=== PATIENT | female | born 1980 | race Caucasian/White ===

== ENCOUNTER 2024-04-15 17:20 | Emergency (ER) | payer OTHER, SELFPAY ==
[2024-04-15 17:24] VITALS: BP 116/77
[2024-04-15 19:00] VITALS: BP 104/69
[2024-04-15 19:17] VITALS: BMI 21.7
--- NOTE | 2024-04-15 19:30 | ED.GENMED ---
History of Present Illness
General
Chief Complaint: Back Pain
Source: patient, spouse (notes she has not had any pain medicine) and family
Exam Limitations: none
Time Seen by Provider: 04/15/24 18:42
Nursing documentation reviewed up to this point in time: agreed with
History of Present Illness
History of Present Illness:
43-year-old female presents emergency department complaining of mid to lower back pain that began this morning after helping a neighbor get dressed. She was lifting the neighbor up, who is over 450 pounds. She denies falling or any trauma. She
denies difficulty urinating. She did not take any medications prior to arrival
Past History
Past History
ED Past Medical History: Asthma, Other (Multiple allergies), Other (Migraine cephalgia) and Other
ED Past Surgical History: None
Social History
Personal:
Living: with family
Employment: Employed
Phy Exam
Physical Exam
Physical Exam:
Physical Exam
General: no apparent distress, not acutely ill
Neck: supple. no meningeal signs. normal posterior pharynx
Heart: s1/s2 regular rate and rhythm, no murmur. equal radial
pulses.
HEENT: Pupils equal round reactive to light, EOMI
Lungs: no acute respiratory distress. clear bilaterally
Abdomen: normal bowel sounds. not tender. no CVAT
Back: Mild tenderness to palpation at paraspinal musculature lower thoracic, upper lumbar
Neuro: alert and oriented. no focal neurological deficits cranial nerves II through XII intact
Skin: no rash
Psychiatric: well kept. interactive and cooperative
Extremities: no edema. no calf tenderness. negative homans. good distal pulses
Course
Orders/Labs/Results
Orders:
Orders
04/15/24 18:55
Ketorolac [Toradol] 15 mg IM NOW STA
04/15/24 19:22
Ibuprofen [Motrin] 600 mg PO NOW STA
04/15/24 19:23
CR Thoracic Spine 3 Views Urgent
Reason For Exam: mid back pain after lifting heavy person
Lumbar Spine Complete, 4 View [CR Lumbar Spine Comp Min 4 Vw*] Urgent
Comment:
Reason For Exam: mid back pain after lifting heavy person
04/15/24 19:29
Acetaminophen [Tylenol] 650 mg PO NOW STA
Vital Signs
Initial and Last Documented VS:
Initial Vital Signs
Temp Pulse Resp BP Pulse Ox
97.7 F 121 16 116/77 100
04/15/24 17:24 04/15/24 17:24 04/15/24 17:24 04/15/24 17:24 04/15/24 17:24
Last Documented Vital Signs
Temp Pulse Resp BP Pulse Ox
97.7 F 90 18 100/65 100
04/15/24 17:24 04/15/24 20:24 04/15/24 20:24 04/15/24 20:24 04/15/24 20:24
MDM/Problems Addressed
Differential Diagnosis Includes:
Back strain, vertebral fracture, cauda equina
MDM/Problems Addressed:
43-year-old female with back strain. Do not suspect cauda equina do not suspect fracture. Stable for discharge. X-ray no acute findings.
*Radiology
Radiology exam reviewed: radiology read reviewed (X-ray no acute finding)
*Pulse Oximetry
Patient hypoxic: no
*Critical Care Note
Total Time (30-74mins, 75-104mins- exclusive of procedures): Not Applicable
Patient Management
Social determinants of health affecting care: Living situation
Escalation/DeEscalation of care consider admission/obs:
Admission not indicated
ED Attending Note
-
Portions of this chart may have been created with voice recognition software.� Occasional wrong word or��sound alike� substitutions may have occurred due to the inherent limitations of voice recognition software.
Discharge Plan
Departure
Patient Disposition: Home (Routine Discharge)
Date of Disposition: 04/15/24
Time of Disposition: 21:14
Patient with high blood pressure during this ER visit?: No
Condition: Good
Discharge Problem:
Strain of mid-back
Instructions: Back Muscle Strain
Prescriptions:
No Action
cetirizine [Zyrtec] 10 mg Tablet
10 mg PO HS
magnesium citrate 125 mg Capsule
250 mg PO HS
Centrum
2 pill PO DAILY
Rx Instructions:
centrum immune mini's 2 tabs
Referrals:
Brien Sprague MD [Active] - Call in 1-3 days for appt
NONE,* [Family Provider] -
Interventions
Interventions:
*Risk Screen - Suicide Last Done: 04/15/24 17:24
*General Assessment Last Done: 04/15/24 19:45
*Neglect/Abuse Screening Last Done: 04/15/24 17:24
ED- Fall Risk Assessment Last Done: 04/15/24 19:00
*ED COVID-19 Vaccine History Last Done: 04/15/24 19:45
*Nursing Disposition Last Done: 04/15/24 21:23
ED-Musculoskeletal Assessment Last Done: 04/15/24 19:00
Discharge Date and Time
Discharge Date/Time: 04/15/24 21:25
Print Language: GEORGIAN
[2024-04-15] MEDS: TYLENOL 650 MG PO (19:41)
[2024-04-15 20:24] VITALS: BP 100/65
== END 2024-04-15 21:25 | disposition home or self-care (01) ==
LOC: EMR 17:20
PROVIDERS: EMERGENCY PHYSICIAN Emergency Medicine
DX: S29.012A Strain of muscle and tendon of back wall of thorax, initial encounter (principal); X50.0XXA Overexertion from strenuous movement or load, initial encounter; J45.909 Unspecified asthma, uncomplicated; G43.909 Migraine, unspecified, not intractable, without status migrainosus; Z88.1 Allergy status to other antibiotic agents; Z91.040 Latex allergy status; Z88.0 Allergy status to penicillin; Z88.2 Allergy status to sulfonamides; Z88.7 Allergy status to serum and vaccine; Z88.8 Allergy status to other drugs, medicaments and biological substances; Z91.048 Other nonmedicinal substance allergy status
CPT/HCPCS: 99283; 72072; 72110

== ENCOUNTER 2024-08-26 13:06 | Emergency (ER) | payer BC, SELFPAY ==
[2024-08-26 13:11] VITALS: BP 135/76
[2024-08-26 13:46] LABS: Hematocrit 43.3 % (37.0-47.0); Hemoglobin 14.9 g/dL (12.0-16.0); Mean Corp Hgb Conc. 34.4 g/dL (33.0-37.0); Mean Corpuscular Volume 88.2 fL (81.0-99.0); Nucleated Red Blood Cells % 0 %; Platelet Count 241 10^3/uL (130-400); Red Cell Dist. Width 12.7 % (11.5-14.5)
[2024-08-26 13:52] LABS: APTT 27.5 Sec (23.4-35.0); INR 0.95; PT 13.0 Sec (11.4-14.6)
[2024-08-26 14:03] LABS: ALT (SGPT) 22 U/L (0-35); AST (SGOT) 19 U/L (14-36); Albumin 5.0 g/dl (3.5-5.0); Alkaline Phosphatase 64 U/L (38-126); Blood Urea Nitrogen 14 mg/dl (7-17); Calcium 10.0 mg/dl (8.4-10.2); Carbon Dioxide 21 mmol/L (22-30); Chloride 110 mmol/L (98-107); Glucose 112 mg/dl (70-99); Potassium 5.1 mmol/L (3.5-5.1); Sodium 137 mmol/L (135-145); Total Protein 7.8 g/dl (6.3-8.2); eGFR > 60.00
[2024-08-26 14:15] LABS: Troponin I < 0.012 ng/ml
--- NOTE | 2024-08-26 17:08 | ED.GENMED ---
History of Present Illness
General
Chief Complaint: Numbness
Source: patient
Exam Limitations: none
Time Seen by Provider: 08/26/24 16:54
History of Present Illness
History of Present Illness:
43-year-old female with a headache to the top of the head x 1 week. Persistent headache. History of frequent headache although this 1 feels differently. She went to urgent care and was placed on doxycycline and a Medrol Dosepak. This morning she
woke with some paresthesias to the upper arm and face. No other neurologic symptoms. History of spinal leak remotely. She does get headaches frequently
Past History
Past History
ED Past Medical History: Asthma, Other (Multiple allergies), Other (Migraine cephalgia) and Other (Spinal leaks)
ED Past Surgical History:
Social History
Personal:
Living: with family
Employment: Employed
Review of Systems
Review of Systems
All Other Systems: Not applicable
Respiratory: Reports no symptoms
Cardiac: Reports no symptoms
ABD/GI: Reports no symptoms
Phy Exam
Physical Exam
Physical Exam:
GENERAL: Alert and oriented in no apparent distress
EYE: Orbits normal. Extraocular muscles intact. No nystagmus
NECK: Supple, no carotid bruit
ENT: Pharynx without erythema
CARDIAC: Regular rate and rhythm without any obvious murmurs.
LUNGS: Clear breath sounds,normal
ABDOMEN: Soft, without focal tenderness or distention
NEUROLOGICAL: Alert and oriented , cranial nerves II through XII intact. Speech normal. Extraocular muscles intact. [id number] normal. No drift. Good lower extremity strength. Light touch intact. Pinprick intact.
SKIN: Warm and dry, no rash or lesion, no discoloration, skin intact.
MUSCULOSKELETAL: No edema,no deformity.Good color
PSYCH: Normal and appropriate interaction.
Course
Orders/Labs/Results
Orders:
Orders
08/26/24 13:15
CT Head W/o Iv Contrast Urgent
Comment:
Reason For Exam: R face and RUE numbness, headache, dizzy
08/26/24 13:21
Electrocardiogram (*1) Urgent
Reason for Study: Other
Other Reason for Exam: Possible Stroke
EKG- Treatment ONCE
08/26/24 13:32
Complete Blood Count/With Diff Urgent
Comprehensive Metabolic Panel Urgent
HCG, Serum Qualitative Screen Urgent
Comment: ADD ON
PTT Urgent
Prothrombin Time Urgent
Troponin I Urgent
08/26/24 17:12
Add On- LAB Urgent
Tests Added?: qual bhcg
08/26/24 18:00
Lidocaine 2% [Xylocaine 2% Mdv] 5 ml INJ ONCE ONE
Triamcinolone Injectable [Kenalog-40] 40 mg IM NOW ONE
08/26/24 19:14
Add On- LAB Urgent
Tests Added?: lyme progressive
Abnormal Lab Results
08/26/24
13:32
WBC 11.0 H 10^3/uL
(4.8-10.8)
Absolute Neuts (auto) 8.6 H 10^3/uL
(1.4-6.5)
Neutrophils % 78.7 H %
(42.2-75.2)
Lymphocytes % 12.8 L %
(20.5-51.1)
Chloride 110 H mmol/L
(98-107)
Carbon Dioxide 21 L mmol/L
(22-30)
Glucose 112 H mg/dl
(70-99)
08/26/24 13:32
08/26/24 13:32
Vital Signs
Initial and Last Documented VS:
Initial Vital Signs
Temp Pulse Resp BP Pulse Ox
98.9 F 114 18 135/76 100
08/26/24 13:11 08/26/24 13:11 08/26/24 13:11 08/26/24 13:11 08/26/24 13:11
Last Documented Vital Signs
Temp Pulse Resp BP Pulse Ox
98.9 F 88 16 110/77 99
08/26/24 13:11 08/26/24 18:09 08/26/24 18:09 08/26/24 18:09 08/26/24 18:09
MDM/Problems Addressed
Differential Diagnosis Includes:
43-year-old female ongoing headache for 1 week. Paresthesias subjectively to the upper arm and right face. Exam is within normal limits however. Some sinus disease on the CT. Labs stable. Neurology will evaluate.
*Radiology
Radiology exam reviewed: radiology read reviewed (No acute findings.)
*Pulse Oximetry
SaO2: 100
Oxygen Mode of Delivery: Room air
Patient hypoxic: no
*Critical Care Note
Total Time (30-74mins, 75-104mins- exclusive of procedures): Not Applicable
Update Note
Update Note:
Patient seen and cleared by neurology. They did do a cervical injection. She is feeling better at the time.
ED Attending Note
-
Portions of this chart may have been created with voice recognition software.� Occasional wrong word or��sound alike� substitutions may have occurred due to the inherent limitations of voice recognition software.
Discharge Plan
Departure
Patient Disposition: Home (Routine Discharge)
Date of Disposition: 08/26/24
Time of Disposition: 19:15
Patient with high blood pressure during this ER visit?: No
Discharge Problem:
Headache/paresthesias, History of spinal leak
Instructions: Paresthesia (DC), Headaches in adults
Prescriptions:
No Action
cetirizine [Zyrtec] 10 mg Tablet
10 mg PO HS
magnesium citrate 125 mg Capsule
250 mg PO HS
Centrum
2 pill PO DAILY
Rx Instructions:
centrum immune mini's 2 tabs
Referrals:
NONE,* [Family Provider, Internal Medicine]
Activity Restrictions/Additional Instructions:
Neurology did recommend an outpatient MRI for completeness
To consider calling [facility] for follow-up or your neurosurgeon
Return with any concerns of progressive symptoms weakness numbness worsening headache etc.
I did send a Lyme titer off for completeness which should be back in 3 to 4 days
Interventions
Interventions:
*Risk Screen - Suicide Last Done: 08/26/24 13:11
*General Assessment Last Done: 08/26/24 13:11
*Neglect/Abuse Screening Last Done: 08/26/24 13:11
*ED COVID-19 Vaccine History Last Done: 08/26/24 13:11
ED- Neurological Assessment Last Done: 08/26/24 18:09
Discharge Date and Time
Print Language: EQUATORIAL GUINEAN
[2024-08-26 17:48] LABS: HCG, Serum Qualitative Screen Negative
--- NOTE | 2024-08-26 18:02 | CON.NEURO ---
Neuro Assessment/Plan
Assessment
43 year old woman with worsening headache, subtle right sided deficits likely due to right c4 sublux
I caught her doing the movement that caused the subluxation (cervical flexion/left rotation) which she admits to doing all the time
she's very scared of the meningeal diverticulum rupturing, and given that this began while she was getting a massage understandably
I did trigger point injection Rt C4 paraspinal, after which her headache and right sided deficits essentially resolved
Plan
no need for MRI to rule out brain tumor
d/c from ED
Consultation
Order
Date of Consultation: 08/26/24
Requesting Provider: Ernst Jay
Reason for Consult: Rt sided tingling numbness
Subjective/Objective
Subjective Data
Date of Service: August 26, 2024
from ED notes;
43-year-old female with a headache to the top of the head x 1 week. Persistent headache. History of frequent headache although this 1 feels differently. She went to urgent care and was placed on doxycycline and a Medrol Dosepak. This morning she
woke with some paresthesias to the upper arm and face. No other neurologic symptoms. History of spinal leak remotely. She does get headaches frequently
her usual headache feels like a really tight ponytail in the back of her head. this headache more severe, feels like the top of her head is going to blow off. remote CSF leak with c6-c7 diverticulum, began during massage for trigger point where she
passed out and vomited profusely
Objective Data
Vital Signs
Temp Pulse Resp BP Pulse Ox
37.2 C 114 18 135/76 100
08/26/24 13:11 08/26/24 13:11 08/26/24 13:11 08/26/24 13:11 08/26/24 17:09
Lab Results
08/26/24 13:32
08/26/24 13:32
PT 13.0 Sec (11.4-14.6) 08/26/24
INR 0.95 08/26/24
APTT 27.5 Sec (23.4-35.0) 08/26/24
Sodium 137 mmol/L (135-145) 08/26/24
Potassium 5.1 mmol/L (3.5-5.1) 08/26/24
BUN 14 mg/dl (7-17) 08/26/24
Glucose 112 mg/dl (70-99) H 08/26/24
Calcium 10.0 mg/dl (8.4-10.2) 08/26/24
Patient Allergies
Sulfa (Sulfonamide Antibiotics) Allergy (Unknown, Verified 08/26/24 13:15)
Hives
cephalexin monohydrate (From Keflex) Allergy (Verified 08/26/24 13:15)
Hives
Influenza Virus Vaccines Allergy (Verified 08/26/24 13:15)
Anaphylaxis
iodine Allergy (Verified 08/26/24 13:15)
Unknown
latex (Latex) Allergy (Verified 08/26/24 13:15)
Rash
Penicillins Allergy (Verified 08/26/24 13:15)
Hives
povidone-iodine (From Betadine) Allergy (Verified 08/26/24 13:15)
Swelling
soap (From Betadine) Allergy (Verified 08/26/24 13:15)
Swelling
preservatives Allergy (Uncoded 08/26/24 13:15)
Anaphylaxis
steroids Allergy (Uncoded 08/26/24 13:15)
Unknown
Physical Exam
-
loss of dominance
patch of numbness to pinprick right lateral neck
mild vibratory loss RUE
palpated right c4 subluxation with overlying trigger point, very tender, too painful for patient to tell if it worsens the neuro symptoms
Medications
-
Home Medications
�Medication �Instructions �Recorded
Centrum 2 pill PO DAILY 04/15/24
cetirizine 10 mg tablet (Zyrtec) 10 mg PO HS 04/15/24
magnesium citrate 125 mg capsule 250 mg PO HS 04/15/24
[2024-08-26 18:09] VITALS: BP 110/77; BMI 22.5
--- NOTE | 2024-08-26 18:54 | EDRN ---
Dr. Cee bedside with medication to administer a nerve block.
--- NOTE | 2024-08-27 01:19 | W.PN.UPDATE ---
Update Note
Progress Note Update
procedure note
[id number] trigger point inj 1-2
M79.10 trigger point
in a 3 cc syringe 25g x 5/8 in needle drawn 2.5 cc Lidocaine 2% and 20 mg Kenalog-40
right c4 paraspinals trigger point palpated and entire contents injected in a fan vertically
after procedure patient report headache resolved. on exam right sided weakness and numbness also resolved.
[2024-08-27 13:59] LABS: Lyme Antibody Screen, EIA Negative (Negative)
== END 2024-08-26 19:29 | disposition home or self-care (01) ==
LOC: EMR 13:06
PROVIDERS: Physician Assistant; EMERGENCY PHYSICIAN Emergency Medicine; OTHER PHYSICIAN Psychiatry & Neurology Clinical Neurophysiology
DX: R20.2 Paresthesia of skin (principal); R51.9 Headache, unspecified; G96.09 Other spinal cerebrospinal fluid leak; Z88.1 Allergy status to other antibiotic agents; Z91.040 Latex allergy status; Z88.0 Allergy status to penicillin; Z88.2 Allergy status to sulfonamides; Z88.7 Allergy status to serum and vaccine; Z88.8 Allergy status to other drugs, medicaments and biological substances; Z91.048 Other nonmedicinal substance allergy status
CPT/HCPCS: 99284; 20552; 70450; 80053; 84484; 84703; 85025; 85610; 85730; 86618; 93005